=== PATIENT | male | born 1950 | race Caucasian/White ===

== ENCOUNTER 2017-10-06 07:27 | Day surgery (SDC) | payer OTHER ==
[~2017-10-06] VITALS: Ht 172.7 cm; Wt 63.5 kg
[2017-10-06] MEDS ORDERED: LIDOCAINE VISCOUS 2% 20 ML UDC ONE (08:31)
== END 2017-10-06 11:18 | disposition home or self-care (01) ==
LOC: MDS 07:27 → MMU 07:29 → MDS 11:18
PROVIDERS: ATTEND Internal Medicine Gastroenterology
DX: K59.8 Other specified functional intestinal disorders (principal); R13.19 Other dysphagia; Z98.890 Other specified postprocedural states
CPT/HCPCS: 43249; C1769